=== PATIENT | male | born 1965 | race Hispanic/Latino ===

== ENCOUNTER 2024-06-21 12:23 | Inpatient (IN) | payer OTHER, BC ==
[~2024-06-21] VITALS: Ht 162.6 cm; Wt 72.0 kg
[2024-06-21] VITALS (10 sets, daily range): BP systolic 119–131; BP diastolic 64–79; PULSE 85–99; RESP 12–17; TEMP 97.2
[2024-06-21] MEDS: FENTanyl CITRate PF 50 MCG/1 ML 2ML VIAL IVP ONE ×2 (12:40→14:22)
--- NOTE | 2024-06-21 13:01 | ERN ---
General Chief Complaint: Upper Extremity Pain/Injury Stated Complaint: RT ARM TRAUMA Time Seen by MD: 12:25 History of Present Illness Initial Comments Otherwise healthy 59-year-old male who presents for right arm injury. He reports that he had his arms crushed in a machine. Has not obvious deformity of the right wrist. Neurovascularly intact. Allergies: Coded Allergies: No Known Drug Allergies (Unverified Allergy, Unknown, 06/21/24) Home Meds Active Scripts Hydrocodone/Acetaminophen (Hydrocodon-Acetaminophen 5-325) 5 Mg-325 Mg Tablet, 1-2 TAB PO Q6HPRN PRN for MODERATE/SEVERE PAIN LEVEL, #56 TAB Prov:ANAID TINEO MD 06/22/24 Past Medical History Past Medical History: No Pertinent History Past Surgical History: None ROS Dictation CONSTITUTIONAL: No chills, no fever, no weakness, no diaphoresis, no malaise. HEAD/FACE: No signs of trauma. EENT: No eye pain, no blurred vision, no tearing, no double vision, no ear pain, no ear discharge, no nose pain, no nasal congestion, no throat pain, no throat swelling, no mouth pain. RESPIRATORY: No cough, no orthopnea, no SOB, no stridor, no wheezing. CARDIOVASCULAR: No chest pain, no edema, no palpitations, no syncope. GASTROINTESTINAL/ABDOMINAL: No abdominal pain, no constipation, no diarrhea, no nausea, no vomiting. GENITOURINARY: No abnormal discharge, no dysuria, no frequent urination, no hematuria. No complaints of pain in the genitals. MUSCULOSKELETAL: Right arm pain INTEGUMENTARY: No change in color, no change in hair/nails, no dryness, no lesion, no lumps, no rash. NEUROLOGICAL/PSYCH: No anxiety, not depressed, no emotional problem, no headache, no numbness, no pre-existing deficit, no history of seizures, no tremors, no weakness. HEMATOLOGIC/LYMPHATIC: Not anemic, no history of blood clots, no apparent bleeding, no bruising, glands not swollen. All Systems Negative, Except as Noted. Physical Exam Physical Exam Dictation VITAL SIGNS: Reviewed. GENERAL APPEARANCE: Alert, oriented x3, no acute distress, obese. HEAD AND FACE: Non-traumatic. EYES: PERRL, pink conjunctivas, eyelid no trauma, anterior chamber clear. EARS: Pinnas intact and no signs of trauma or erythema. Ear canals clear and no discharge. TMs no erythema. NOSE: No discharge, no bleeding. OROPHARYNX: Mouth normal, teeth no caries, tongue pink. Pharynx clear, no erythema. Tonsils no exudates, no abscesses noted. Mucous membrane moist. NECK: Supple, non-tender, no thyromegaly, no masses, no JVD, no bruits. BREAST: Deferred. CHEST: No tenderness, no crepitus, no paradoxical movement, no retractions. LUNGS: Clear, well-ventilated, symmetric, no rales, no wheezing, no rhonchi, no stridor, good breath sounds bilaterally. HEART: Regular rate, regular rhythm, no murmur, no gallops. VASCULAR: No peripheral edema. ABDOMEN: Soft, positive bowel sounds, nondistended, no guarding, nontender, no rebound, no masses no hepatomegaly, no splenomegaly, no Sanchez's sign, no hernias. RECTAL: Deferred. GENITAL: Deferred. NEUROLOGICAL: Normal speech, gross motor function intact, gross sensory function intact. MUSCULOSKELETAL: Deformity to right arm. Neurovascularly intact. SKIN: Color pink, dry, no turgor, no rash, no lacerations, no abrasions, no contusions. LYMPHATICS: Deferred. MDM CC: Right arm injury Historian: Patient Comorbidities: None Patient has an obvious deformity neurovascularly intact He was given IV Dilaudid and IV fentanyl in the ER. Conscious sedation performed, anatomic alignment I consulted the orthopedic surgeon Dr. Tineo she recommends admission. Patient NPO Patient's labs are stable Admitted to the hospitalist ED Course Vital Signs Date Time Temp Pulse Resp B/P (MAP) Pulse Ox O2 Delivery O2 Flow Rate FiO2 06/21/24 12:24 98.8 75 18 124/76 99 Room Air 0 Procedure Dictation Procedural (Conscious) Sedation Performed by: Nick Suarez Consent: Written consent obtained (see nursing note) Risks and benefits: risks, benefits and alternatives were discussed Consent given by: patient Patient understanding: states understanding of the procedure being performed Patient consent: understanding of the procedure matches consent given Patient identity confirmed: verbally with patient and arm band Time out: Immediately prior to procedure a "time out" was called to verify the correct patient, procedure, equipment, 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 Medication IV: etomidate, fentanyl Complication: Tolerated well without complication. No hypoxic episodes. Time: Total intra-service time with patient was 15 minutes. Joint Reduction Joint Reduction : Conscious Sedation: Yes Reduction Attempts: 1 Pre-Procedure NV Exam: Yes Post-Procedure NV Exam: Yes post joint reduction film: Progress Procedure: Closed right forearm reduction Total time 3 minutes Patient had a conscious sedation, arm was reduced anatomic position. Placed in a splint. Neurovascularly before and after intact. DX & DISP Disposition: Inpatient Departure Impression: Primary Impression: Open right forearm fracture Condition: Stable Scripts Hydrocodone/Acetaminophen (Hydrocodon-Acetaminophen 5-325) 5 Mg-325 Mg Tablet 1-2 TAB PO Q6HPRN PRN for MODERATE/SEVERE PAIN LEVEL, #56 TAB Prov: ANAID TINEO MD 06/22/24 NICK SUAREZ DO Jun 21, 2024 13:01
[2024-06-21] MEDS: ETOMIDATE 20MG VIAL IVP ONE (14:22)
--- NOTE | 2024-06-21 14:30 | HMCIMG ---
FOREARM 2VWS RT HISTORY: Post reduction COMPARISON: Same day x-ray TECHNIQUE: One projection of the right forearm was obtained. FINDINGS: Transverse fracture with displacement seen involving the mid distal portion of the radius and ulna. No dislocation is seen. Alignment has improved from previous study. Patient is status post reduction. Degenerative changes are seen. IMPRESSION: 1. Findings as described above.
--- NOTE | 2024-06-21 14:31 | HMCIMG ---
FOREARM 2VWS RT HISTORY: Fracture COMPARISON: None TECHNIQUE: Frontal projection of the right forearm was obtained. FINDINGS: Fracture displacement are seen involving the mid distal portion of the radius and ulna with marked angulation. Soft tissue swelling is seen. No dislocation is seen. Degenerative changes are seen. IMPRESSION: 1. Findings as described above.
--- NOTE | 2024-06-21 15:03 | HMCIMG ---
FOREARM 2VWS RT HISTORY: Post reduction COMPARISON: Same day x-ray TECHNIQUE: 2 images of right forearm were obtained status post reduction. FINDINGS: Fracture displacement are again seen involving the mid distal radius and ulna. Improvement of alignment is seen in the lateral view but displacement remaining. Soft tissue swelling is seen. No dislocation is seen IMPRESSION: 1. Findings as described above.
--- NOTE | 2024-06-21 15:45 | EKG ---
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
[2024-06-21 16:19] LABS: BASOPHILS # (AUTO) 0.05 K/uL (0.00-0.20); BASOPHILS % (AUTO) 0.3 % (0.0-5.0); EOSINOPHILS # (AUTO) 0.01 K/uL (0.00-0.70); EOSINOPHILS % (AUTO) 0.1 % (0.0-8.0); HEMATOCRIT 40.7 % (42-54); IMMATURE GRANULOCYTE ABSOLUTE 0.07 K/uL (0-1); LYMPHOCYTES # (AUTO) 0.9 K/uL (1.0-4.8); MEAN CORPUSCULAR HGB CONC 32.9 g/dL (32.0-36.0); MEAN CORPUSCULAR VOLUME 88.1 fL (79-99); MONOCYTES # (AUTO) 0.9 K/uL (0.1-1.0); MONOCYTES % (AUTO) 5.1 % (3.0-13.0); NEUTROPHILS # (AUTO) 15.3 K/uL (1.8-7.7); NEUTROPHILS % (AUTO) 89.1 % (40.0-77.0); PLATELET COUNT (AUTO) 259 K/uL (130-400); RED BLOOD CELL COUNT(AUTO) 4.62 MIL/uL (4.50-6.20); RED CELL DISTRIBUTION WIDTH 12.8 % (11.0-15.5); WHITE BLOOD COUNT (AUTO) 17.2 K/uL (4.8-10.8)
--- NOTE | 2024-06-21 16:27 | CONS ---
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 Patient states he works around in a machine that spins to roll up a tarp and that his right middle finger got caught in it when he tried pull something out. This then pulled his forearm into the machine before he could hit the safety shut off. He presented to the emergency room with a right forearm injury and per ER report 2 mm opening in the skin that was bleeding. REVIEW OF SYSTEMS CONSTITUTIONAL: Denies fever, chills, or fatigue. HEAD/FACE: No signs of trauma. EENT: Denies eye pain, blurred vision, double vision, or light sensitivity. RESPIRATORY: Denies shortness of breath, cough, wheezing CARDIOVASCULAR: Denies chest pain, palpitation, syncope GASTROINTESTINAL/ABDOMINAL: Denies abdominal pain, constipation, diarrhea, nausea or vomiting GENITOURINARY: Denies dysuria or hematuria. MUSCULOSKELETAL: Reports joint pain, tenderness, or trauma. INTEGUMENTARY: Denies rash or itchiness NEUROLOGICAL/PSYCH: Denies anxiety, depression, heat or cold intolerance. PAST MEDICAL HISTORY: Denies PAST SURGICAL HISTORY: Denies PAST SOCIAL HISTORY: One pack per month, 1-2 drinks per month, denies illicit drug use. 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 FAMILY HISTORY: Noncontributory Coded Allergies: No Known Drug Allergies (Unverified Allergy, Unknown, 06/21/24) PHYSICAL EXAM EYES: Anicteric. Pupils equal and reactive. HENT: No oral thrush seen, moist Oral mucosa NECK: Supple, no JVD or thyromegaly. LUNGS: Good air entry. No rales, no rhonchi. CARDIOVASCULAR: S1, S2 regular. No murmur heard. ABDOMEN: Soft, non tender, bowel sounds present, no organomegaly CENTRAL NERVOUS SYSTEM: Awake, alert, oriented x 3. No focal deficits. SKIN: No rashes, no swelling. LYMPHATICS: No peripheral lymphadenopathy MUSCULOSKELETAL: No joint swelling, erythema or tenderness. EXTREMITIES: No cyanosis or clubbing BACK: No deformity, no pressure ulcer. GENITOURINARY: No dysuria or hematuria Vital Sign (Last 24 Hours) 06/21/24 15:01 Temp 98.8 Pulse 74 Resp 16 B/P (MAP) 124/71 Pulse Ox 99 O2 Delivery Room Air* O2 Flow Rate 0 FiO2 21 LABS: DIAGNOSTICS / RADIOLOGY: Two views of the right forearm with oblique diaphyseal fractures of both the right ulna and radius ASSESSMENT: Open both bone forearm fracture of the right arm in otherwise healthy 59-year-old PLAN: Discussed with the patient he should remain NPO right now. We need to start him on some IV fluids. We will go ahead and plan to take him to the OR for open reduction internal fixation of both the radius and the ulna as well as excisional irrigation and debridement as needed for the open fracture site. Additionally I have asked the ER to go ahead and start 2 g of Ancef. ANAID GALVIN MD Jun 21, 2024 16:27
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
[2024-06-21] MEDS ORDERED: ondanSETRON 4MG INJ IVP PRN (16:30)
[2024-06-21] MEDS ORDERED: morPHINE 2 MG SYG IVP PRN (16:30)
[2024-06-21] MEDS ORDERED: acetaMINOPHEN 1,000 MG/100 ML VIAL IVPB PRN (16:30)
[2024-06-21] MEDS ORDERED: ketOROlac 15MG/ML VIAL (15MG/ML) IV PRN ×2 (16:30→22:30)
[2024-06-21 16:33] LABS: CREATININE 0.9 mg/dL (0.5-1.3); POTASSIUM 3.7 mmol/L (3.5-5.1)
--- NOTE | 2024-06-21 16:42 | HMCIMG ---
CHEST 1VW HISTORY: Preop COMPARISON: None FINDINGS: A frontal projection of the chest was obtained. No acute pulmonary infiltrates is seen. The heart is normal in size. Prominent interstitial markings are seen. No evidence of aortic calcification is seen. IMPRESSION: 1. No acute pulmonary infiltrate is seen.
[2024-06-21 16:46] LABS: INR 0.98 (0.85-1.15); PROTHROMBIN TIME 10.6 SEC (9.6-11.6)
[2024-06-21] MEDS: 0.9%NACL 1000ML 1,000 ML IV SCH (16:55)
[2024-06-21] MEDS: ceFAZolin SODIUM 2 GM VIAL IVPB STA (16:55)
[2024-06-21] MEDS: teTANUS/diphthERIA TOXOID [ADULT] 0.5 ML VIAL IM ONE (16:56)
[2024-06-21 17:12] LABS: ALBUMIN 3.1 g/dL (3.5-5.0); BILIRUBIN,DIRECT 0.1 mg/dL (0.0-0.3); BILIRUBIN,TOTAL 0.4 mg/dL (0.2-1.0); TOTAL PROTEIN, SERUM 5.9 g/dL (6.0-8.3)
[2024-06-21] MEDS ORDERED: rocuRONium bROMide 10MG/1ML 5ML VL ONE (19:11)
[2024-06-21] MEDS ORDERED: LIDOCAINE PF 100MG/5ML (2%) SYRINGE 5ML ONE (19:11)
[2024-06-21] MEDS ORDERED: MIDAZOLAM HCL 1 MG/ML 2ML VIAL ONE (19:11)
[2024-06-21] MEDS ORDERED: SUCCINYLCHOLINE CHLORIDE 20 MG/ML 10 ML VIAL ONE (19:11)
[2024-06-21] MEDS ORDERED: proPOFol 10 MG/ML 20ML VIAL IV ONE ×2 (19:11→21:42)
[2024-06-21] MEDS ORDERED: FENTanyl CITRate PF 50 MCG/1 ML 2ML VIAL ONE (19:12)
[2024-06-21] MEDS: CLINDAMYCIN IVPB 900MG/50ML 50 ML IV ONE (19:37)
[2024-06-21] MEDS: BUPIvacaine/PF 0.25% 30ML VIAL IJ ONE (19:48)
[2024-06-21] MEDS ORDERED: ePHEDrine SULFate 50 MG/ML AMPULE ONE (22:02)
[2024-06-21] MEDS ORDERED: DiphenhydrAMINE HCL 50 MG/ML VIAL IVP PRN (22:30)
[2024-06-21] MEDS ORDERED: CALCIUM CARB 500MG PO PRN (22:30)
[2024-06-21] MEDS ORDERED: PoTASSium chl 10% ELIXIR 20MEQ 20 MEQ/15 ML UDCUP PO PRN (22:30)
[2024-06-21] MEDS ORDERED: traMADol HCL 50 MG TABLET PO PRN (22:30)
[2024-06-21] MEDS ORDERED: PoTASSium chloRIDE 20MEQ ER 20 MEQ ERTAB PO PRN (22:30)
[2024-06-21] MEDS ORDERED: PoTASSium chloRIDE 20MEQ/100ML 100 ML IV PRN (22:30)
[2024-06-21] MEDS ORDERED: DiphenhydrAMINE HCL 25 MG CAPSULE PO PRN (22:30)
[2024-06-21] MEDS ORDERED: FERROUS FUMARATE 324 MG TABLET PO PRN (22:30)
--- NOTE | 2024-06-21 22:40 | HMCIMG ---
FOREARM 2VWS RT HISTORY: ORIF COMPARISON: None TECHNIQUE: Fluoroscopic images of right forearm were obtained. FINDINGS: Please see procedure report by referring physician. IMPRESSION: 1. Findings as described above.
--- NOTE | 2024-06-21 22:47 | OP ---
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 Patient reported that his middle finger initially got caught drawing the rest of his arm into the machine before he could should off the emergency. He sustained an injury to the right forearm and was found in the emergency room to have a 2 mm laceration on the dorsal aspect of the arm in addition to the fractures of the shaft of the right radius and ulna. After discussion of the risks, benefits, and alternatives with the patient, he voluntarily agreed to undergo the aforementioned procedure. We discussed that he may have further injury related to tendons in his fingers but we will not know the full depth of these types of injuries until we are able to get a better exam. These may have to be addressed at a later date. DESCRIPTION OF PROCEDURE: Patient was properly identified in the preoperative holding area. Surgical site marking was verified and surgery consent reviewed. The patient was then taken to the operating room and placed in supine position on the OR table. After induction of general anesthesia, preoperative antibiotics were given, all bony prominences were well-padded, and a well padded tourniquet was applied but not inflated at this time. The right upper extremity was then prepped and draped in usual sterile fashion. Surgical timeout was done verifying correct surgery, side, site, and location to be performed. We then exsanguinated the right upper extremity using an Esmarch and inflated the tourniquet to 250 mm Hg. Performed a volar approach of Amarjit to the radial shaft through an approximately 20 cm long volar incision. Incision was made in the volar aspect of the forearm using a 15 blade we came down sharply onto the tendon of FCR distally and followed this proximally. Once we were deep to the FCR tendon we incised the sub sheath for this tendon and began our deep dissection. All of these tissues were retracted ulnarly as we identified the radius and released the pronator quadratus from the radial border distally. We then began to track proximally where we tied off branches from radial artery as we entered the zone of trauma and released the pronator teres off the radial border to further expose the proximal bone. Once we had adequate exposure of the fracture site with the radial shaft, we debrided the fracture site of interposed soft tissue and muscle. This was excised using a rongeur. No foreign material was found. We then obtained two Lion jaw clamps and achieved our reduction using these two clamps for traction and rotation. We then selected the a seven hole plate and contoured this as appropriate. We held this into position over the fracture with 2 [id number] clamps holding the fracture reduced to the plate. At this time we elected to go ahead and ensure ulnar reduction could be achieved before we began to place fixation in the radius. We then used 15 blade to make an approximately 15 cm long incision along the ulnar aspect of the forearm. We dissected down along the subcutaneous border of the ulna between the FCU and ECU interval. We identified the proximal and distal fracture fragments. Once again to we debrided the ends of the fracture fragments removing interposed soft tissue consisting of muscle. This was excise d using a rongeur. We did not appreciate any foreign material. We did note that there appeared to be significant pre-existing soft tissue trauma along the dorsal aspect of the ulnar side of the forearm. Here we noted some tendons that appeared to have partial-thickness tears of the musculotendinous junction at the level of the fracture. We were then able to achieve a reduction of the ulnar fracture fragments. This was visualized under AP and lateral fluoroscopic views to see that both bones were out to length. At this point we went ahead and began to place screws in the radial plate. After placing to proximal and one distal screw through the radial plate we noted that our fracture site was distracting. We therefore elected to loosen the screws and refocus our attention on the ulna. We then achieved a reduction of the ulna and selected a six hole plate. This was held in position with a our clamps while we began placing our screws. The plate was positioned so that we were able to place three screws proximal and three screws distal to the fracture site holding a reduction in adequate position. Ulnar fixation was checked under fluoroscopy with two views and found to be adequate. We then refocused our attention on the radius where we were able to achieve a better reduction, now with the ulna stabilized, after removing the one distal screw. This reduction was then held with a clamp while we re-drilled and filled the screw holes so that we had three screws proximal and distal to the fracture. We then obtained our final AP and lateral fluoroscopic views. The wounds were thoroughly irrigated out with normal saline. We then began to repair the subcutaneous tissue using 2-0 Vicryl in interrupted fashion. At this point we had to deflated our tourniquet. We then closed the skin using running subcuticular 3-0 Monocryl with Dermabond applied over the top of this. 0.25% Marcaine was injected into the liza-incisional tissue. Sterile soft dressing was applied. The patient was then awakened from anesthesia and taken to the recovery room in stable condition. POSTOPERATIVE PLAN: Patient will need to remain nonweightbearing in the right upper extremity for six weeks. We will need to achieve a better functional exam of the hand and wrist now that the bones are back out to length to determine if he has any further deficit in function. It will be important to continue to work on range motion of the right shoulder elbow wrist and fingers to prevent joint contracture and help resolve edema. ANAID GALVIN MD Jun 21, 2024 22:47
[2024-06-21] MEDS: CALDOLOR 800MG+NS 250ML 250 ML IV ONE (23:21)
[2024-06-21] MEDS: MEPERIDINE-PF 25 MG/ML SYG ONE (23:22)
[2024-06-21] MEDS: ondanSETRON 4MG INJ ONE (23:25)
[2024-06-22] VITALS (16 sets, daily range): BP systolic 102–134; BP diastolic 65–80; PULSE 82–94; RESP 13–20; TEMP 97.3–99.2; O2SAT 99
[2024-06-22] MEDS: FAMOTIDINE 20MG VIAL IV SCH (00:21)
[2024-06-22] MEDS: 0.9%NACL 1000ML 1,000 ML IV SCH (00:32)
[2024-06-22] MEDS: ceFAZolin SODIUM 2 GM VIAL IVP SCH (00:32)
[2024-06-22 05:20] LABS: BASOPHILS # (AUTO) 0.03 K/uL (0.00-0.20); BASOPHILS % (AUTO) 0.2 % (0.0-5.0); EOSINOPHILS # (AUTO) 0.04 K/uL (0.00-0.70); EOSINOPHILS % (AUTO) 0.3 % (0.0-8.0); IMMATURE GRANULOCYTE ABSOLUTE 0.05 K/uL (0-1); LYMPHOCYTES # (AUTO) 1.2 K/uL (1.0-4.8); LYMPHOCYTES % (AUTO) 9.3 % (21.0-51.0); MEAN CORPUSCULAR HEMOGLOBIN 29.1 pg (27.0-33.0); MEAN CORPUSCULAR HGB CONC 32.4 g/dL (32.0-36.0); MEAN CORPUSCULAR VOLUME 89.8 fL (79-99); MONOCYTES # (AUTO) 1.1 K/uL (0.1-1.0); MONOCYTES % (AUTO) 7.8 % (3.0-13.0); PLATELET COUNT (AUTO) 232 K/uL (130-400); RED BLOOD CELL COUNT(AUTO) 4.12 MIL/uL (4.50-6.20); RED CELL DISTRIBUTION WIDTH 13.1 % (11.0-15.5); WHITE BLOOD COUNT (AUTO) 13.4 K/uL (4.8-10.8)
[2024-06-22 05:39] LABS: ALBUMIN 2.6 g/dL (3.5-5.0); BILIRUBIN,TOTAL 0.6 mg/dL (0.2-1.0); CREATININE 0.9 mg/dL (0.5-1.3); MAGNESIUM 1.8 mg/dL (1.80-2.40); POTASSIUM 4.2 mmol/L (3.5-5.1); TOTAL PROTEIN, SERUM 5.3 g/dL (6.0-8.3)
[2024-06-22] MEDS: polyETHYLene GLYCol 3350 17 GM POWD.PACK PO SCH (08:55)
[2024-06-22] MEDS: HYDROcodone/APAP 5/325 1 TAB TABLET PO PRN (08:58)
--- NOTE | 2024-06-22 09:06 | PN ---
Ortho postop day one. This morning patient is awake alert and oriented. He is still in bed. He is advised to try to spend majority of the day out of bed. Vital signs have been stable. Afebrile. Laboratory results reviewed. Voiding on his own. Operative findings discussed with the patient. Dressing is loosened as it was causing increased edema to the dorsum of the hand and swelling to the digits. He has at this time able to make a near full composite fist. He has full range of motion of the elbow including extension flexion supination and pronation. Also discussed with the patient more mobilizing his shoulder to avoid stiffness. We discussed nonweightbearing status for the next six weeks. Follow up in our clinic in 7-10 days. Assessment: Status post open reduction internal fixation of mid shaft fracture of ulna and radius. Plan: From orthopedic standpoint patient can be discharged home after he completes postoperative antibiotics and follow up in ortho Care in 7-10 days Vitals/Labs Vital Signs Date Time Temp Pulse Resp B/P (MAP) Pulse Ox O2 Delivery O2 Flow Rate FiO2 06/22/24 08:00 98.4 84 16 118/68 96 Room Air 06/22/24 03:55 2.0 06/22/24 01:17 28 Laboratory Tests 06/21/24 16:10 06/22/24 04:59 Medications Current Medications Fentanyl Citrate 100 mcg ONCE ONCE IVP Last administered on 06/21/24at 12:40; Start 06/21/24 at 12:30; Stop 06/21/24 at 12:32; Status DC Fentanyl Citrate 100 mcg ONCE ONCE IVP Last administered on 06/21/24at 14:22; Start 06/21/24 at 13:30; Stop 06/21/24 at 13:31; Status DC Etomidate 20 mg ONCE ONCE IVP Last administered on 06/21/24at 14:22; Start 06/21/24 at 13:30; Stop 06/21/24 at 13:31; Status DC Cefazolin Sodium 2 gm ONCE STAT IVPB Last administered on 06/21/24at 16:55; Start 06/21/24 at 15:42; Stop 06/21/24 at 15:44; Status DC Tetanus/ Diphtheria Toxoids Adsorbed 0.5 ml ONCE ONCE IM Last administered on 06/21/24at 16:56; Start 06/21/24 at 16:00; Stop 06/21/24 at 16:01; Status DC Famotidine 20 mg BID IV Last administered on 06/22/24at 08:58; Start 06/21/24 at 21:00; Stop 07/21/24 at 20:59 Sodium Chloride 1,000 ml @ 100 mls/hr Q10H IV Last administered on 06/21/24at 16:55; Start 06/21/24 at 16:30; Stop 07/21/24 at 16:29 Morphine Sulfate 2 mg Q4H PRN IVP; Start 06/21/24 at 16:30; Stop 06/21/24 at 22:29; Status DC Ketorolac Tromethamine 15 mg Q12H PRN IV; Start 06/21/24 at 16:30; Stop 06/21/24 at 16:16; Status DC Acetaminophen 1,000 mg Q12H PRN IVPB; Start 06/21/24 at 16:30; Stop 06/21/24 at 22:29; Status DC Ondansetron HCl 4 mg Q6H PRN IVP; Start 06/21/24 at 16:30; Stop 07/21/24 at 16:29 Clindamycin HCl/ Dextrose 50 ml @ As Directed STK-MED ONCE IV Last administered on 06/21/24at 19:37; Start 06/21/24 at 18:52; Stop 06/21/24 at 18:55; Status DC Bupivacaine HCl 2.5 mg STK-MED ONCE IJ Last administered on 06/21/24at 19:48; Start 06/21/24 at 18:54; Stop 06/21/24 at 18:55; Status DC Lidocaine HCl 100 mg STK-MED ONCE .ROUTE; Start 06/21/24 at 19:11; Stop 06/21/24 at 19:11; Status DC Succinylcholine Chloride 200 mg STK-MED ONCE .ROUTE; Start 06/21/24 at 19:11; Stop 06/21/24 at 19:11; Status DC Propofol 200 mg STK-MED ONCE IV; Start 06/21/24 at 19:11; Stop 06/21/24 at 19:11; Status DC Midazolam HCl 2 mg STK-MED ONCE .ROUTE; Start 06/21/24 at 19:11; Stop 06/21/24 at 19:11; Status DC Rocuronium [place] 50 mg STK-MED ONCE .ROUTE; Start 06/21/24 at 19:11; Stop 06/21/24 at 19:12; Status DC Fentanyl Citrate 100 mcg STK-MED ONCE .ROUTE; Start 06/21/24 at 19:12; Stop 06/21/24 at 19:12; Status DC Propofol 200 mg STK-MED ONCE IV; Start 06/21/24 at 21:42; Stop 06/21/24 at 21:42; Status DC Ephedrine Sulfate 50 mg STK-MED ONCE .ROUTE; Start 06/21/24 at 22:02; Stop 06/21/24 at 22:02; Status DC Sodium Chloride 1,000 ml @ 100 mls/hr Q10H IV Last administered on 06/22/24at 00:32; Start 06/21/24 at 22:30; Stop 06/22/24 at 22:29 Polyethylene Glycol 17 gm DAILY PO Last administered on 06/22/24at 08:55; Start 06/22/24 at 09:00; Stop 07/22/24 at 08:59 Psyllium Hydrophilic Mucilloid 1 tbs DAILYLUNCH PO; Start 06/22/24 at 12:00; Stop 07/22/24 at 11:59 Bisacodyl 10 mg DAILY PRN PO; Start 06/23/24 at 22:30; Stop 07/23/24 at 22:29 Bisacodyl 10 mg DAILY PRN RC; Start 06/24/24 at 22:30; Stop 07/24/24 at 22:29 Ketorolac Tromethamine 15 mg Q6H PRN IV; Start 06/21/24 at 22:30; Stop 06/26/24 at 22:29 Ferrous Fumarate 324 mg DAILY PRN PO; Start 06/21/24 at 22:30; Stop 07/21/24 at 22:29 Calcium Carbonate 500 mg Q12H PRN PO; Start 06/21/24 at 22:30; Stop 07/21/24 at 22:29 Diphenhydramine HCl 25 mg Q6H PRN PO; Start 06/21/24 at 22:30; Stop 07/21/24 at 22:29 Diphenhydramine HCl 25 mg Q6H PRN IVP; Start 06/21/24 at 22:30; Stop 07/21/24 at 22:29 Cefazolin Sodium 2 gm Q8H IVP Last administered on 06/22/24at 06:20; Start 06/21/24 at 23:00; Stop 06/22/24 at 07:01; Status DC Potassium Chloride 100 ml @ 100 mls/hr AD PRN IV; Start 06/21/24 at 22:30; Stop 07/21/24 at 22:29 Potassium Chloride 20 meq AD PRN PO; Start 06/21/24 at 22:30; Stop 07/21/24 at 22:29 Potassium Chloride 20 meq AD PRN PO; Start 06/21/24 at 22:30; Stop 07/21/24 at 22:29 Tramadol HCl 50 mg Q6H PRN PO; Start 06/21/24 at 22:30; Stop 06/26/24 at 22:29 Acetaminophen/ Hydrocodone Bitart Q4H PRN PO Last administered on 06/22/24at 08:58; Start 06/21/24 at 22:30; Stop 06/26/24 at 22:29 Ibuprofen 250 ml @ As Directed STK-MED ONCE IV Last administered on 06/21/24at 23:21; Start 06/21/24 at 23:18; Stop 06/21/24 at 23:18; Status DC Meperidine HCl 25 mg STK-MED ONCE .ROUTE Last administered on 06/21/24at 23:22; Start 06/21/24 at 23:18; Stop 06/21/24 at 23:18; Status DC Ondansetron HCl 4 mg STK-MED ONCE .ROUTE Last administered on 06/21/24at 23:25; Start 06/21/24 at 23:23; Stop 06/21/24 at 23:24; Status DC FRANCISCA GARCIA NP Jun 22, 2024 09:06
[2024-06-22] MEDS: 0.9%NACL 1000ML 1,000 ML IV ONE (12:31)
[2024-06-22] MEDS: PSYLLIUM SEED 1 EACH PACKET PO SCH (12:31)
[2024-06-22] MEDS ORDERED: HYDR-4060 PO (13:10)
--- NOTE | 2024-06-22 14:41 | DS ---
Discharge Summary Hospital Course Summary: This 59-year-old male with no significant past medical history who presented to the ED on 06/21/24 for right forearm injury. Patient reported that his forearm got caught in a tarp machine earlier yesterday and sustained a fracture. Patient denies any previous medical history and denies any cardiac or pulmonary comorbidities. On presentation to the hospital, patient was noted to be afebrile and hemodynamically stable. His labs were remarkable for leukocytosis of WBC 17.2, total creatine kinase of 514. Forearm X-ray on presentation showed findings of displaced fracture involving the mid distal portion of the radius and ulna with soft tissue swelling. Orthopedic surgeon Dr. Tineo consult was obtained and underwent open reduction internal fixation of both radius and ulna with excisional irrigation and debridement without any complications performed by Dr. Tineo on 06/21/24. Post op PT eval obtained and tolerated well. Today on 06/22/24, his vitals are stable. WBC decreased to 13.4 from 17.2, total CK increased to 1444. Patient was given 1 L bolus of NS and repeated his total CK level which came back 1600. This is due to muscle injury. He is able to make a near full composite fist, no loss of sensations. He has full range of motion of the elbow including extension flexion supination and pronation. Also discussed with the patient more mobilizing his shoulder to avoid stiffness. Patient is clinically stable for discharge from orthopedic standpoint. They recommended non weight bearing in the right upper extremity for 6 weeks and follow up in 7-10 days. Patient is recommended to recheck his total creatinine kinase level as in outpatient in 2 days. Patient is recommended to follow up with his primary care physician in 3-5 days after discharge. Professor Of Genetics(s): Orthopedic surgeon : Dr. Tineo Procedure(s): Operative Note: DATE OF PROCEDURE: 06/21/24 SURGEON: ANAID TINEO MD DIETARY SERVER: Christel Borrego ANESTHESIA: General ANESTHESIOLOGIST/CHANNEL BUSINESS MANAGER: Kalpesh Baig PREOPERATIVE DIAGNOSIS: Right radius and ulna grade 1 open oblique shaft fractures POSTOPERATIVE DIAGNOSIS: Right radius and ulna grade 1 open oblique shaft fractures PROCEDURE: Open reduction internal fixation of the right radial shaft and ulnar shaft fractures, irrigation and debridement of open fracture site with the excision of interposed muscle POSTOPERATIVE PLAN: Patient will need to remain nonweightbearing in the right upper extremity for six weeks. We will need to achieve a better functional exam of the hand and wrist now that the bones are back out to length to determine if he has any further deficit in function. It will be important to continue to work on range motion of the right shoulder elbow wrist and fingers to prevent joint contracture and help resolve edema. [place] [id number] [id number] IMAGING REPORT Signed PATIENT: MARTIN LOPEZ MR#: [id number] : 1965 SEX: M AGE: 59 LOCATION: ED ORDER [id number] STATUS: REG ER REPORT#: [id number] SERVICE 1230 REASON: fracture ORDERING PHYSICIAN: GONZALO VELASCO DO PROCEDURE: FORARMR - FOREARM 2VWS RT FOREARM 2VWS RT HISTORY: Fracture COMPARISON: None TECHNIQUE: Frontal projection of the right forearm was obtained. FINDINGS: Fracture displacement are seen involving the mid distal portion of the radius and ulna with marked angulation. Soft tissue swelling is seen. No dislocation is seen. Degenerative changes are seen. IMPRESSION: 1. Findings as described above. DICTATED BY: TRISH BENDER MD DATE: 06/21/241427 ELECTRONICALLY SIGNED BY: TRISH BENDER MD DATE: 06/21/24 1431 [place] [id number] [id number] IMAGING REPORT Signed PATIENT: MARTIN LOPEZ MR#: [id number] : 1965 SEX: M AGE: 59 LOCATION: ED ORDER [id number] STATUS: REG ER REPORT#: [id number] SERVICE 140 REASON: POST REDUCTION ORDERING PHYSICIAN: GONZALO VELASCO DO PROCEDURE: FORARMR - FOREARM 2VWS RT FOREARM 2VWS RT HISTORY: Post reduction COMPARISON: Same day x-ray TECHNIQUE: One projection of the right forearm was obtained. FINDINGS: Transverse fracture with displacement seen involving the mid distal portion of the radius and ulna. No dislocation is seen. Alignment has improved from previous study. Patient is status post reduction. Degenerative changes are seen. IMPRESSION: 1. Findings as described above. DICTATED BY: TRISH BENDER MD DATE: 06/21/24 1427 ELECTRONICALLY SIGNED BY: TRISH BENDER MD DATE: 06/21/24 1439 [place] [address] [id number] IMAGING REPORT Signed PATIENT: MARTIN LOPEZ MR#: [id number] : 1965 SEX: M AGE: 59 LOCATION: ED ORDER 1441 STATUS: REG ER REPORT#: [id number] SERVICE 1440 REASON: RIGHT FOREARM POST REDUCTION CASTING ORDERING PHYSICIAN: GONZALO VELASCO DO PROCEDURE: FORARMR - FOREARM 2VWS RT FOREARM 2VWS RT HISTORY: Post reduction COMPARISON: Same day x-ray TECHNIQUE: 2 images of right forearm were obtained status post reduction. FINDINGS: Fracture displacement are again seen involving the mid distal radius and ulna. Improvement of alignment is seen in the lateral view but displacement remaining. Soft tissue swelling is seen. No dislocation is seen IMPRESSION: 1. Findings as described above. DICTATED BY: TRISH BENDER MD DATE: 06/21/24 1457 ELECTRONICALLY SIGNED BY: TRISH BENDER MD DATE: 06/21/24 1505 [place] [address] [id number] IMAGING REPORT Signed PATIENT: MARTIN LOPEZ MR#: [id number] : 1965 SEX: M [facility]GE: 59 [facility] STATUS: ADM IN REPORT#: [id number] SERVICE 153 REASON: pre op ORDERING PHYSICIAN: GONZALO VELASCO DO PROCEDURE: CXR1VW - CHEST 1VW CHEST 1VW HISTORY: Preop COMPARISON: None FINDINGS: A frontal projection of the chest was obtained. No acute pulmonary infiltrates is seen. The heart is normal in size. Prominent interstitial markings are seen. No evidence of aortic calcification is seen. IMPRESSION: 1. No acute pulmonary infiltrate is seen. DICTATED BY: TRISH BENDER MD DATE: 06/21/24 1639 ELECTRONICALLY SIGNED BY: TRISH BENDER MD DATE: 06/21/24 1642 [place] [address] [id number] IMAGING REPORT Signed PATIENT: MARTIN LOPEZ MR#: [id number] : 1965 SEX: M [facility]GE: 59 [facility] STATUS: ADM IN REPORT#: [id number] SERVICE 193 REASON: ORIF RT forearm FX ORDERING PHYSICIAN: ANAID TINEO MD PROCEDURE: FORARMR - FOREARM 2VWS RT FOREARM 2VWS RT HISTORY: ORIF COMPARISON: None TECHNIQUE: Fluoroscopic images of right forearm were obtained. FINDINGS: Please see procedure report by referring physician. IMPRESSION: 1. Findings as described above. DICTATED BY: TRISH BENDER MD DATE: 06/21/242234 ELECTRONICALLY SIGNED BY: TRISH BENDER MD DATE: 06/21/24 224 [place] [address] [id number] ELECTRO CARDIOGRAM Draft PATIENT: MARTIN LOPEZ MR#: [id number] : 1965 SEX: M AGE: 59 LOCATION: [facility] ROOM/BED: ORDER [id number] REPORT#: [id number] REASON: ORDERING PHYSICIAN: GONZALO VELASCO DO PROCEDURE: EKG - 12 LEAD EKG TRACING- TECHNICAL [facility] Test Date: 2024-06-21 Test Time: 15:44:37 Pat Name: MARTIN LOPEZ Department: [facility] Room: Gender: Male Dynamicist: [id number] : 1965 Requested By: GONZALO VELASCO Order Number: [id number] Reading MD: Measurements Intervals [place] Rate: 83 P: 47 AR: 144 QRS: 7 QRSD: 88 T: 22 QT: 363 QTc: 425 Interpretive Statements Sinus rhythm Please click the below link to view image of tracing. Assessment/Plan: ASSESSMENT: Post operative day 1 s/p ORIF of both radius and ulna with excisional irrigation and debridement on 06/21/24 Open fracture involving the right distal radius and ulna of the right forearm, POA Leukocytosis, improving Rhabdomyolysis, POA Discharge Instructions: ADMISSION DATE : 06/21/24 DISCHARGE DATE : 06/22/24 DISPOSITION : Home CONDITION : Stable Professor Of Genetics(s) : Orthopedic surgeon : Dr. Tineo FOLLOW UP APPOINTMENTS : Patient to follow-up with the primary care physician by within 3-5 days and with orthopedic surgeon Dr. Tineo in 7-10 days upon discharge. PROCEDURES : Report attached to summary : Operative note IMAGING (s) : Report attached to summary : Forearm x-ray, chest x-ray and EKG MICROBIOLOGY : None ACTIVITY : ab adia. Nonweight-bearing in the right upper extremity for 6 weeks HOME MEDICATIONS : Continue NEW MEDICATIONS : As needed [place] for pain has been prescribed by Dr. Tineo. TEACHING : We reinforced the importance of medication compliance and with follow up appointments. Advised patient to follow-up with the primary care physician by within 3-5 days and with orthopedic surgeon Dr. Tineo in 7-10 days upon discharge. Emergency instructions : The patient was instructed to present to the nearest Emergency Department or call 911 should their symptoms return or worsen. Home Medications: Active Scripts Hydrocodone/Acetaminophen (Hydrocodon-Acetaminophen 5-325) 5 Mg-325 Mg Tablet, 1-2 TAB PO Q6HPRN PRN for MODERATE/SEVERE PAIN LEVEL, #56 TAB Prov:ANAID TINEO MD 06/22/24 New Medications: Hydrocodone/Acetaminophen (Hydrocodon-Acetaminophen 5-325) 5 Mg-325 Mg Tablet 1-2 TAB PO Q6HPRN PRN for MODERATE/SEVERE PAIN LEVEL, #56 TAB Time spent arranging discharge: 1-30 minutes ATTESTATION BY PHYSICIAN I have seen and examined the patient. I reviewed the documentation, medical decision making, and treatment plan as noted by the resident provider above. I agree with the findings and plan of care. Bhaskar Herring MD, KRUPALI P MD Jun 22, 2024 14:41
[2024-06-23] MEDS ORDERED: BisaCODYL 5 MG TABLET.DR PO PRN (22:30)
[2024-06-24] MEDS ORDERED: BisaCODYL 10 MG SUPP.RECT RC PRN (22:30)
== END 2024-06-22 16:25 | disposition home or self-care (01) | DRG 511 ==
LOC: EDBD 12:23 → EDH 12:23 → EDHIP 12:24 → 4AH 06-22 00:10
PROVIDERS: ADMIT Internal Medicine; ATTEND Internal Medicine
PROC: 0PSK04Z Reposition Right Ulna with Internal Fixation Device, Open Approach (ICD-10-PCS; 2024-06-21)
PROC: 0PSH04Z Reposition Right Radius with Internal Fixation Device, Open Approach (ICD-10-PCS; principal; 2024-06-21 19:17)
DX: S52.391B Other fracture of shaft of radius, right arm, initial encounter for open fracture type I or II (principal); M62.82 Rhabdomyolysis; D72.829 Elevated white blood cell count, unspecified; S52.691B Other fracture of lower end of right ulna, initial encounter for open fracture type I or II; S52.291B Other fracture of shaft of right ulna, initial encounter for open fracture type I or II; F17.210 Nicotine dependence, cigarettes, uncomplicated; S41.111A Laceration without foreign body of right upper arm, initial encounter; X58.XXXA Exposure to other specified factors, initial encounter; Y93.89 Activity, other specified; Y92.89 Other specified places as the place of occurrence of the external cause; Y99.8 Other external cause status; Z79.899 Other long term (current) drug therapy
CPT/HCPCS: 36415; 71045; 73090; 80048; 80053; 80076; 82550; 83735; 85025; 85610; 85730; 86850; 86900; 86901; 90471; 90714; 93005; 96375; 96376; G0378; J0330; J1741; J2003; J2175; J2250; J2405; J2704; J3010; J3490; J7030; J0665; J0690